=== PATIENT | female | born 1975 | race Hispanic/Latino ===

== ENCOUNTER 2023-05-01 13:26 | Emergency (ER) | payer OTHER | END 2023-05-01 14:56 | disposition home or self-care (01) | LOC: ERS 13:26 | DX: S09.90XA Unspecified injury of head, initial encounter (principal); V79.9XXA Bus occupant (driver) (passenger) injured in unspecified traffic accident, initial encounter; Z87.891 Personal history of nicotine dependence | CPT/HCPCS: 70450; 72125 ==